=== PATIENT | female | born 2000 | race Hispanic/Latino ===

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

== ENCOUNTER 2024-05-21 10:40 | Inpatient (IN) | payer BC, OTHER ==
[~2024-05-21] VITALS: Ht 160 cm; Wt 81.6 kg
[~2024-05-21 10:40] MED LIST: BUPROPION XL300 MG PO; DULOXETINE HCL60 MG PO; FABRAZYME35 MG; GABAPENTIN300 MG PO; NORETHIND-ETH1 EACH PO
[2024-05-21 10:47] VITALS: TEMP 97.8
[2024-05-21 12:00] LABS: BASOPHILS # (AUTO) 0.1 (0.0-0.1); BASOPHILS % 0.4 % (0.0-1.0); EOSINOPHILS # (AUTO) 0.1 (0.0-0.4); EOSINOPHILS % 0.7 % (0.0-6.0); LYMPHOCYTES # (AUTO) 2.5 (1.0-3.2); LYMPHOCYTES % 19.9 % (18.0-39.1); MEAN CORPUSCULAR HEMOGLOBIN 16.6 pg (28-32); MEAN CORPUSCULAR HGB CONC 25.6 g/dL (31-35); MONOCYTES # (AUTO) 0.7 (0.2-0.8); MONOCYTES % 5.6 % (4.4-11.3); NEUTROPHILS # (AUTO) 9.2 (2.1-6.9); NEUTROPHILS % 72.5 % (38.7-80.0); PLATELET COUNT 545 x10e3/uL (140-360); RED BLOOD COUNT 3.37 x10e6/uL (3.6-5.1); RED CELL DISTRIBUTION WIDTH 22.5 % (11.7-14.4); WHITE BLOOD COUNT 12.69 x10e3/uL (4.8-10.8)
[2024-05-21 12:04] LABS: HEMATOCRIT 21.9 % (34.2-44.1); HEMOGLOBIN 5.6 g/dL (12.0-16.0)
[2024-05-21 12:14] LABS: INR 0.97; PROTHROMBIN TIME 13.5 seconds (11.9-14.5)
[2024-05-21 12:15] LABS: PARTIAL THROMBOPLASTIN TIME 30.6 seconds (23.8-35.5)
[2024-05-21 12:21] LABS: ALANINE AMINOTRANSFERASE 22 IU/L (0-55); ALBUMIN 3.9 g/dL (3.5-5.0); ALKALINE PHOSPHATASE 140 IU/L (40-150); ANION GAP 14.5 mmol/L (8-16); BILIRUBIN,TOTAL 0.5 mg/dL (0.2-1.2); BLOOD UREA NITROGEN 12 mg/dL (7-26); BUN/CREATININE RATIO 16 (6-25); CALCIUM 9.2 mg/dL (8.4-10.2); CARBON DIOXIDE 22 mmol/L (22-29); CHLORIDE 106 mmol/L (98-107); CREATININE, SERUM 0.73 mg/dL (0.57-1.11); EST GLOMERULAR FILTRATION RATE 119 ML/MIN (>=60); GLUCOSE 120 mg/dL (74-118); POTASSIUM 3.5 mmol/L (3.5-5.1); SODIUM 139 mmol/L (136-145); TOTAL PROTEIN 7.9 g/dL (6.5-8.1)
[2024-05-21 12:41] LABS: FERRITIN 4.14 ng/mL (4.63-204.00)
[2024-05-21] MEDS ORDERED: ONDANSETRON HCL INJ 2MG/ML 2ML 2 MG/ML VIAL IV PRN (12:45)
[2024-05-21] MEDS: SODIUM CHLORIDE 0.9% 1000ML 1,000 ML IV SCH (12:45)
[2024-05-21] MEDS ORDERED: ACETAMINOPHEN 325 MG TAB PO PRN (12:45)
[2024-05-21 13:02] LABS: ANISOCYTOSIS MODERATE; HYPOCHROMASIA MODERATE; MICROCYTOSIS MODERATE; OVALOCYTES MODERATE; PLATELET ESTIMATE SLIGHTLY INCREASED; PLATELET MORPHOLOGY COMMENT NORMAL; POLYCHROMASIA FEW; RBC MORPHOLOGY COMMENT ABNORMAL
[2024-05-21 16:01] VITALS: PULSE 95; RESP 20
[2024-05-21] MEDS ORDERED: CYMBALTA20 MG PO (17:13)
[2024-05-21 17:39] VITALS: BP 134/78; PULSE 88; RESP 16; TEMP 98.3; O2SAT 100
[2024-05-21 20:00] VITALS: BP 149/73; PULSE 86; RESP 18; TEMP 98.6; O2SAT 100
[2024-05-21] MEDS: GABAPENTIN 300 MG CAP PO SCH (21:59)
[2024-05-22] VITALS (8 sets, daily range): BP systolic 122–138; BP diastolic 67–80; PULSE 81–93; RESP 17–20; TEMP 97.3–98.5; O2SAT 99–100
[2024-05-22 07:58] LABS: ALBUMIN 3.6 g/dL (3.5-5.0); ANION GAP 13.6 mmol/L (8-16); BILIRUBIN,TOTAL 0.6 mg/dL (0.2-1.2); CREATININE, SERUM 0.66 mg/dL (0.57-1.11); POTASSIUM 3.6 mmol/L (3.5-5.1); TOTAL PROTEIN 7.1 g/dL (6.5-8.1)
[2024-05-22] MEDS: SODIUM CHLORIDE 0.9% 250ML 250 ML ONE ×2 (08:18→16:59)
[2024-05-22 08:25] LABS: BASOPHILS # (AUTO) 0.1 (0.0-0.1); BASOPHILS % 0.6 % (0.0-1.0); EOSINOPHILS # (AUTO) 0.1 (0.0-0.4); EOSINOPHILS % 0.9 % (0.0-6.0); HEMOGLOBIN 7.3 g/dL (12.0-16.0); LYMPHOCYTES # (AUTO) 3.4 (1.0-3.2); LYMPHOCYTES % 24.3 % (18.0-39.1); MEAN CORPUSCULAR HEMOGLOBIN 19.2 pg (28-32); MEAN CORPUSCULAR HGB CONC 28.1 g/dL (31-35); MEAN CORPUSCULAR VOLUME 68.4 fL (81-99); MONOCYTES % 7.3 % (4.4-11.3); NEUTROPHILS # (AUTO) 9.1 (2.1-6.9); NEUTROPHILS % 66.3 % (38.7-80.0); PLATELET COUNT 442 x10e3/uL (140-360); RED CELL DISTRIBUTION WIDTH 22.6 % (11.7-14.4); WHITE BLOOD COUNT 13.76 x10e3/uL (4.8-10.8)
[2024-05-22] MEDS: DULOXETINE HCL 30 MG DELAYED RELEASE PO SCH (09:23)
[2024-05-22] MEDS: GABAPENTIN 300 MG CAP PO SCH (21:03)
[2024-05-23 00:18] VITALS: BP 116/63; PULSE 82; RESP 16; TEMP 98.3; O2SAT 100
[2024-05-23 04:03] VITALS: BP 118/70; PULSE 88; RESP 17; TEMP 98.3; O2SAT 100
[2024-05-23 05:49] LABS: BASOPHILS # (AUTO) 0.1 (0.0-0.1); BASOPHILS % 0.4 % (0.0-1.0); EOSINOPHILS # (AUTO) 0.2 (0.0-0.4); EOSINOPHILS % 1.3 % (0.0-6.0); HEMATOCRIT 29.9 % (34.2-44.1); HEMOGLOBIN 8.6 g/dL (12.0-16.0); LYMPHOCYTES # (AUTO) 3.3 (1.0-3.2); LYMPHOCYTES % 23.2 % (18.0-39.1); MEAN CORPUSCULAR HEMOGLOBIN 20.3 pg (28-32); MEAN CORPUSCULAR HGB CONC 28.8 g/dL (31-35); MEAN CORPUSCULAR VOLUME 70.7 fL (81-99); MONOCYTES # (AUTO) 1.1 (0.2-0.8); MONOCYTES % 7.8 % (4.4-11.3); NEUTROPHILS # (AUTO) 9.6 (2.1-6.9); NEUTROPHILS % 66.7 % (38.7-80.0); PLATELET COUNT 419 x10e3/uL (140-360); RED BLOOD COUNT 4.23 x10e6/uL (3.6-5.1); RED CELL DISTRIBUTION WIDTH 25.2 % (11.7-14.4); WHITE BLOOD COUNT 14.38 x10e3/uL (4.8-10.8)
[2024-05-23 08:00] VITALS: BP 118/70; PULSE 88; RESP 17; TEMP 98.3; O2SAT 100
[2024-05-23 09:01] VITALS: BP 133/82; PULSE 82; RESP 19; TEMP 97.7; O2SAT 99
== END 2024-05-23 14:57 | disposition home or self-care (01) | DRG 812 ==
LOC: ER 11:26 → ERHOLD 12:46 → MED/SURG2 16:31 → OBSVTOIN 05-22 14:15
PROVIDERS: ADMIT Internal Medicine; ATTEND Internal Medicine
PROC: 30233N1 Transfusion of Nonautologous Red Blood Cells into Peripheral Vein, Percutaneous Approach (ICD-10-PCS; principal; 2024-05-21)
DX: D50.9 Iron deficiency anemia, unspecified (principal); N92.0 Excessive and frequent menstruation with regular cycle; R00.2 Palpitations; F32.A Depression, unspecified; E75.21 Fabry (-Anderson) disease; M79.2 Neuralgia and neuritis, unspecified; Z79.890 Hormone replacement therapy
CPT/HCPCS: 36415; 71045; 80053; 82728; 83540; 83880; 84466; 84702; 85025; 85610; 85730; 86850; 86900; 86920; 99284; G0378; J7050; P9016